=== PATIENT | female | born 1930 | race Two or more races ===

== ENCOUNTER 2018-10-10 12:44 | Inpatient (IN) | payer OTHER ==
[~2018-10-10] VITALS: Ht 154.9 cm; Wt 50.0 kg
[~2018-10-10 12:44] MED LIST: ARICEPT5 MG; NORVASC2.5 M1; SYNTHROID50 MCG; aricept; lexapro; tekturna
[2018-10-10] MEDS ORDERED: LEXAPRO20 MG (13:22)
[2018-10-10] MEDS ORDERED: CETIRIZINE HCL10 M1 (13:23)
[2018-10-10] MEDS ORDERED: FOLIC ACID1 MG (13:23)
[2018-10-10] MEDS ORDERED: ARICEPT5 MG (13:24)
[2018-10-10] MEDS ORDERED: APETIGEN P12.5 MG/15 (13:24)
[2018-10-10] MEDS ORDERED: RESTORIL15 MG (13:25)
[2018-10-10] MEDS ORDERED: REMERON15 MG (13:25)
[2018-10-31] MEDS ORDERED: ARICEPT5 MG PO (10:22)
[2018-10-31] MEDS ORDERED: LEXAPRO5 MG PO (10:23)
[2018-10-31] MEDS ORDERED: TEKTURNA150 MG PO (10:25)
[2018-11-08] MEDS ORDERED: POM (MEDICAMENTO EN PO (13:51)
[2018-11-08] MEDS ORDERED: LEVOTHYROXINE75 MCG PO (13:51)
[2018-11-08] MEDS ORDERED: BACLOFEN10 MG PO (13:51)
== END 2018-11-08 14:39 | disposition other institution (70) | DRG 196 ==
LOC: ER 12:44 → MEDI 15:23
PROVIDERS: ADMIT Specialist
PROC: 3E0F7GC Introduction of Other Therapeutic Substance into Respiratory Tract, Via Natural or Artificial Opening (ICD-10-PCS; principal; 2018-10-10)
PROC: 4A033R1 Measurement of Arterial Saturation, Peripheral, Percutaneous Approach (ICD-10-PCS; 2018-10-10)
PROC: 0T9B70Z Drainage of Bladder with Drainage Device, Via Natural or Artificial Opening (ICD-10-PCS; 2018-10-10)
PROC: 02HV33Z Insertion of Infusion Device into Superior Vena Cava, Percutaneous Approach (ICD-10-PCS; 2018-10-10)
PROC: 4A12X4Z Monitoring of Cardiac Electrical Activity, External Approach (ICD-10-PCS; 2018-10-20)
PROC: 5A09457 Assistance with Respiratory Ventilation, 24-96 Consecutive Hours, Continuous Positive Airway Pressure (ICD-10-PCS; 2018-10-21)
PROC: B246ZZZ Ultrasonography of Right and Left Heart (ICD-10-PCS; 2018-10-22)
PROC: 0DH67UZ Insertion of Feeding Device into Stomach, Via Natural or Artificial Opening (ICD-10-PCS; 2018-11-01)
PROC: 3E0G76Z Introduction of Nutritional Substance into Upper GI, Via Natural or Artificial Opening (ICD-10-PCS; 2018-11-05)
DX: J84.112 Idiopathic pulmonary fibrosis (principal); G21.0 Malignant neuroleptic syndrome; R57.1 Hypovolemic shock; J81.0 Acute pulmonary edema; I50.33 Acute on chronic diastolic (congestive) heart failure; J96.01 Acute respiratory failure with hypoxia; N39.0 Urinary tract infection, site not specified; J90 Pleural effusion, not elsewhere classified; I96 Gangrene, not elsewhere classified; R64 Cachexia; E44.0 Moderate protein-calorie malnutrition; Z99.11 Dependence on respirator [ventilator] status; J81.1 Chronic pulmonary edema; I11.9 Hypertensive heart disease without heart failure; T43.595A Adverse effect of other antipsychotics and neuroleptics, initial encounter; R13.19 Other dysphagia; F06.1 Catatonic disorder due to known physiological condition; F32.89 Other specified depressive episodes; E03.8 Other specified hypothyroidism; B95.1 Streptococcus, group B, as the cause of diseases classified elsewhere; B95.2 Enterococcus as the cause of diseases classified elsewhere; L89.151 Pressure ulcer of sacral region, stage 1; B96.5 Pseudomonas (aeruginosa) (mallei) (pseudomallei) as the cause of diseases classified elsewhere; B96.6 Bacteroides fragilis [B. fragilis] as the cause of diseases classified elsewhere; Z66 Do not resuscitate; I11.0 Hypertensive heart disease with heart failure; G20 Parkinson's disease; Z51.5 Encounter for palliative care; Z74.01 Bed confinement status